=== PATIENT | male | born 1935 | race Caucasian/White ===

== ENCOUNTER 2016-11-11 12:30 | Inpatient (IN) ==
--- NOTE | 2016-11-11 13:09 | PROVIDER DOCUMENTATION ---
Addendum entered and electronically signed by Loly Sanabria Scribe 11/11/16 17:35 : Progress - XRAY 1 XRAY: Bilateral XRAY Study: Chest Impression: Abnormal XRAY Interpretation: RLL pneumonia with COPD per Dr. Matamoros Original Note: HPI-Respiratory General - General Chief Complaint: Shortness of Breath Stated Complaint: RESP DISTRESS Time Seen by Provider: 11/11/16 12:32 Source: patient Allergies/Adverse Reactions: Patient Allergies Allergy/AdvReac Type Severity Reaction Status Date / Time No Known Allergies Allergy Unverified 11/11/16 12:43 Home Medications: Albuterol Sulfate [Ventolin Hfa] 1 puff INH 3-4XDAY PRN PRN 09/09/12 Carvedilol [Coreg] 6.25 mg PO BID 09/09/12 Lisinopril 5 mg PO DAILY 09/09/12 Tamsulosin [Flomax] 0.4 mg PO QHS 09/09/12 Montelukast Sodium 10 mg PO QHS 01/05/14 SIMVAstatin [Zocor] 20 mg PO DAILY 01/05/14 Fluticasone/Salmeterol [Advair 250-50 Diskus] 1 each IH BID 05/06/14 Prednisone 10 mg PO EVERY OTHER DAY 05/06/14 Potassium Chloride E.r. [Klor-Con] 10 meq PO BID 11/11/16 - History of Present Illness-Resp Nature of Presenting Problem: Pt is 81 y/o M presents to the ED via EMS with SOB. Pt states has COPD and cardiac history. Pt states having a cough and producing yellow sputum. Pt states the SOB has worsened in the last two days. Pt denies chest pain and F. Quality of Pain: reports: tightness Severity in ED: reports: mild Onset/Duration: reports: 2 days ago Timing: reports: still present, intermittent Exposure: reports: unknown cause Cough Quality/Degree: reports: moderate, sputum (yellow) Episode Frequency: occasional episodes Current Respiratory Medication Therapy: Initiated see nurses note Modifying Factors: improves with: nothing Associated Symptoms: reports: cough, shortness of breath. denies: chest pain/ soreness, dizziness, earache, facial pain, fever/chills, flu-like symptoms, headache, heart racing, hurts to breathe, hyperventilating, lightheadedness, muscle/bodyaches, nasal congestion, nasal drainage, sinus pain, short of breath , sore throat, sweaty, wheezing Similar Symptoms Previously?: Yes Recently seen or treated by another doctor?: No Review of Systems - Adult - REVIEW OF SYSTEMS - ADULT Constitutional: denies: chills, fever Eyes: denies: decreased vision, blurred vision, double vision Ears, Nose, Mouth & Throat: denies: ear pain, nose pain, throat pain Cardiovascular: denies: chest pain, heart murmur, irregular heart rate Respiratory: reports: cough, shortness of breath. denies: wheezing Gastrointestinal: denies: abdominal pain, diarrhea, nausea, vomiting Genitourinary: denies: dysuria, hematuria Musculoskeletal: denies: bone pain, joint pain, neck pain Integumentary: denies: hives, itching Neurological: denies: dizziness/vertigo, headache/migraines Psychiatric: reports: no symptoms reported Endocrine: reports: no symptoms reported Hematologic/Lymphatic: reports: no symptoms reported Allergic/Immunologic: reports: no symptoms reported All Other Systems: Reviewed and Negative Past History - Adult - PAST MEDICAL HISTORY-ADULT Review of Records: reports: Nursing Assessment Review, Medications Reviewed, Social history reviewed & non-contributory. Major Childhood Illnesses: reports: denies history Cardiovascular: reports: HTN, [place], pacemaker Respiratory: reports: denies history Gastrointestinal: reports: denies history Obstetrical/Gynecological: reports: denies history Genitourinary: reports: denies history Musculoskeletal: reports: denies history Neurological: reports: dementia Endocrine/Immune: reports: denies history Other Conditions: reports: denies history - PRIOR SURGERIES/PROCEDURES Surgical/Procedure History: reports: CABG - IMMUNIZATION STATUS Childhood Immunizations: See Nurse Assessment Flu Vaccine: See Nurse Assessment - FAMILY HISTORY Family History: reviewed, not pertinent - SOCIAL HISTORY Smoking: quit greater than 1 year, cigarettes Provider spent 3-5 mins advising pt. on dangers of tobacco.: Discussed manners to quit use, and f/u contacts for add'l counseling. Substance Use: alcohol Alcohol Use Frequency: occasionally Number of drinks per typical drinking period:: 3-4 drinks Living Situation: family Physical Exam-General - PHYSICAL EXAM-ADULT Initial Vital Signs Reviewed: Yes - CONSTITUTIONAL General Appearance: appears well, alert, no apparent distress - EYES Eyes: PERRL/EOMI, pink conjunctivae - HEAD, EARS, NOSE, MOUTH & THROAT HENMT: normocephalic/atraumatic, moist mucous membranes, normal ENT inspection - NECK Neck: non-tender, full range of motion, normal inspection - RESPIRATORY Respiratory: chest non-tender, lungs clear, normal breath sounds, increased rate - CARDIOVASCULAR Cardiovascular: normal peripheral pulses, regular rate, rhythm, no edema - GASTROINTESTINAL (ABDOMEN) Abdominal Exam: normal bowel sounds, non tender, soft - LYMPHATIC Lymphatic: no adenopathy - MUSCULOSKELETAL Back Exam: normal inspection, no CVA tenderness, no vertebral tenderness Extremity: normal range of motion, non-tender, normal gait - SKIN Integumentary: normal color, normal turgor, warm/dry - NEUROLOGIC Neurologic: marketing intelligence manager II-XII nml as tested, grossly normal, no motor/sensory deficits - PSYCHIATRIC Psych/Mental Status: normal mood/affect, normal thought content, normal thought process, oriented x 3 Progress - PLAN OF CARE/RESULTS Progress/Plan/Lab Results: Orders Category Date Time Status Cardiac Monitoring DIRECTED Care 11/11/16 12:45 Active Saline Loc NOW Care 11/11/16 12:45 Active CHEST-2 VIEWS [RAD] Stat Exams 11/11/16 12:45 Ordered ABG [RESP] Routine Lab 11/11/16 12:46 Ordered BLOOD CULTURE [BLDCUL] Stat Lab 11/11/16 13:03 Ordered CBC WITH ELECTRONIC DIFF [HEME] Stat Lab 11/11/16 13:03 Ordered CK PROFILE [SP CHEM] Stat Lab 11/11/16 13:03 Ordered COMPREHENSIVE METABOLIC PANEL [CHEM] Stat Lab 11/11/16 13:03 Ordered D-DIMER [CHEM] Stat Lab 11/11/16 13:03 Ordered LACTATE, PLASMA [CHEM] Stat Lab 11/11/16 13:03 Ordered MAGNESIUM [CHEM] Stat Lab 11/11/16 13:03 Ordered PRO B-NATRIURETIC PEPTIDE Stat Lab 11/11/16 13:03 Ordered PROTIME WITH INR [COAG] Stat Lab 11/11/16 13:03 Ordered PTT [COAG] Stat Lab 11/11/16 13:03 Ordered SPUTUM CULTURE WITH GRAM STAIN [RM] Stat Lab 11/11/16 13:05 Ordered TROPONIN T Stat Lab 11/11/16 13:03 Ordered EKG [EKG] Stat Ther 11/11/16 12:45 Ordered Vital Signs - 24 hr 11/11/16 11/11/16 12:34 12:40 Pulse Rate 98 H 88 Respiratory 26 H 21 Rate Blood Pressure 122/76 122/76 O2 Sat by Pulse 95 95 Oximetry Laboratory Tests 11/11/16 11/11/16 12:15 13:06 WBC 7.23 RBC 3.83 L Hgb 12.0 L Hct 35.4 L MCV 92.4 MCH 31.3 H MCHC 33.9 RDW Std Deviation 12.0 Plt Count 131 MPV 9.4 Immature Gran % (Auto) 0.3 Neut % (Auto) 63.7 Lymph % (Auto) 14.9 L Sebastian % (Auto) 18.9 H Eos % (Auto) 1.9 Baso % (Auto) 0.3 Immature Gran # (Auto) 0.02 Neut # 4.60 Lymph # 1.08 L Sebastian # 1.37 H Eos # 0.14 Baso # 0.02 Specimen Type ARTERIAL Sample Site R RADIAL pH 7.38 pCO2 59 H* pO2 65 HCO3 31.1 H Base Excess 8.1 H Oxyhemoglobin 92.3 L ABG O2 Sat (Calculated) 14.4 L ABG O2 Saturation 96.9 ABG Carboxyhemoglobin 3.00 H ABG Methemoglobin 1.7 H Durga Test YES A-a O2 Difference 61.0 Total Hemoglobin 11.1 L Lactate 0.50 Liter Flow 2.0 Blood Gas Modality CANNULA FiO2 % 28.0 Laboratory Tests 11/11/16 11/11/16 11/11/16 12:15 12:15 12:15 WBC 7.23 RBC 3.83 L Hgb 12.0 L Hct 35.4 L MCV 92.4 MCH 31.3 H MCHC 33.9 RDW Std Deviation 12.0 Plt Count 131 MPV 9.4 Immature Gran % (Auto) 0.3 Neut % (Auto) 63.7 Lymph % (Auto) 14.9 L Sebastian % (Auto) 18.9 H Eos % (Auto) 1.9 Baso % (Auto) 0.3 Immature Gran # (Auto) 0.02 Neut # 4.60 Lymph # 1.08 L Sebastian # 1.37 H Eos # 0.14 Baso # 0.02 PT INR PTT (Actin FS) D-Dimer 0.44 Specimen Type Sample Site pH pCO2 pO2 HCO3 Base Excess Oxyhemoglobin ABG O2 Sat (Calculated) ABG O2 Saturation ABG Carboxyhemoglobin ABG Methemoglobin Durga Test A-a O2 Difference Total Hemoglobin Lactate Liter Flow Blood Gas Modality FiO2 % Sodium 130 L Potassium 4.7 Chloride 89 L Carbon Dioxide 28 Anion Gap 13 BUN 12 Creatinine 0.9 Estimated GFR/1.73 m2 > 60 BUN/Creatinine Ratio 13 Glucose 137 H Calculated Osmolality 263 Calcium 9.0 Magnesium 1.7 Total Bilirubin 0.56 AST 16 ALT 9 L Alkaline Phosphatase 92 Troponin T Jid-[id number] Pept Total Protein 7.3 Albumin 4.1 Globulin 3.2 Albumin/Globulin Ratio 1.3 Plasma Lactate 11/11/16 11/11/16 11/11/16 12:15 12:15 12:15 WBC RBC Hgb Hct MCV MCH MCHC RDW Std Deviation Plt Count MPV Immature Gran % (Auto) Neut % (Auto) Lymph % (Auto) Sebastian % (Auto) Eos % (Auto) Baso % (Auto) Immature Gran # (Auto) Neut # Lymph # Sebastian # Eos # Baso # PT 10.8 INR 1.02 PTT (Actin FS) 26.1 D-Dimer Specimen Type Sample Site pH pCO2 pO2 HCO3 Base Excess Oxyhemoglobin ABG O2 Sat (Calculated) ABG O2 Saturation ABG Carboxyhemoglobin ABG Methemoglobin Durga Test A-a O2 Difference Total Hemoglobin Lactate Liter Flow Blood Gas Modality FiO2 % Sodium Potassium Chloride Carbon Dioxide Anion Gap BUN Creatinine Estimated GFR/1.73 m2 BUN/Creatinine Ratio Glucose Calculated Osmolality Calcium Magnesium Total Bilirubin AST ALT Alkaline Phosphatase Troponin T < 0.010 Qjo-[id number]-Fwgfivotnkg Pept 1129 H Total Protein Albumin Globulin Albumin/Globulin Ratio Plasma Lactate 11/11/16 11/11/16 12:58 13:06 WBC RBC Hgb Hct MCV MCH MCHC RDW Std Deviation Plt Count MPV Immature Gran % (Auto) Neut % (Auto) Lymph % (Auto) Sebastian % (Auto) Eos % (Auto) Baso % (Auto) Immature Gran # (Auto) Neut # Lymph # Sebastian # Eos # Baso # PT INR PTT (Actin FS) D-Dimer Specimen Type ARTERIAL Sample Site R RADIAL pH 7.38 pCO2 59 H* pO2 65 HCO3 31.1 H Base Excess 8.1 H Oxyhemoglobin 92.3 L ABG O2 Sat (Calculated) 14.4 L ABG O2 Saturation 96.9 ABG Carboxyhemoglobin 3.00 H ABG Methemoglobin 1.7 H Durga Test YES A-a O2 Difference 61.0 Total Hemoglobin 11.1 L Lactate 0.50 Liter Flow 2.0 Blood Gas Modality CANNULA FiO2 % 28.0 Sodium Potassium Chloride Carbon Dioxide Anion Gap BUN Creatinine Estimated GFR/1.73 m2 BUN/Creatinine Ratio Glucose Calculated Osmolality Calcium Magnesium Total Bilirubin AST ALT Alkaline Phosphatase Troponin T Qot-F-Micaoechosq Pept Total Protein Albumin Globulin Albumin/Globulin Ratio Plasma Lactate 0.8 - EKG 1 Time of EKG reading by physician:: 13:27 EKG Read and Signed by:: Goldy Matamoros EKG Interpretation (*Must complete 3 of following elements*): Abnormal (T wave abnormality, consider lateral ischemia) Rate: 60 Rhythm: atrial-paced rhythm Comments: anterior infarct, age undetermined - CONSULTS/PCP/HOSPITALIST Notification #1 *Consult/PCP/Hospitalist*: Dr. Rankin Time Discussed: 14:50 (Dr. Rankin accepted admit. ) Reason/Comments: Dr. Matamoros consulted with Dr. Rankin about admit of Pt Consult Disposition: Admit Departure - Departure Time of Disposition Order: 14:49 DIAGNOSIS: COPD (chronic obstructive pulmonary disease) Qualifiers: COPD type: unspecified COPD Qualified Code(s): J44.9 - Chronic obstructive pulmonary disease, unspecified Disposition: ADMITTED INPATIENT 09 Certified Medical Emergency: Emergent Condition: Stable Additional Instructions: ED Follow Up Instructions: You have been treated by a care provider in the Emergency Department. These instructions are being provided to you so you can have an understanding of how to care for yourself upon discharge. Upon discharge from the Emergency Department, you are responsible for making arrangements for follow-up care by a physician of your choice. Take all prescribed medications as directed. Return to the Emergency Department immediately for any new or worsening symptoms. You may call the Physician Referral phone number at [phone] to obtain a list of Physicians who are taking new patients. Referrals: Keven Rankin MD [Primary Care Provider] - Attestation - Scribe Verification/Attestation Scribe:: Loly Sanabria Acting as Scribe for:: Goldy Matamoros Scribe documention review:: This chart was documented by a scribe and accurately reflects the service the provider performed and the decisions made by the provider.
[2016-11-11 13:16] LABS: ALLEN TEST YES; BE 8.1 mmoll (-3.0-3.0); BLOOD TYPE ARTERIAL; DRAW SITE R RADIAL; METHB 1.7 % (0.0-1.5); O2(CT) 14.4 mL/dL (15.0-23.0); PO2(98.6) 65 mmHg (60-100); SAMPLE BLOOD; SAO2 96.9 % (95.0-100.0); THB 11.1 g/dL (11.5-17.4); pH(98.6) 7.38 (7.35-7.45)
[2016-11-11 13:17] LABS: MANUAL DIFF NEEDED? NO
[2016-11-11 13:17] LABS: MODALITY CANNULA
[2016-11-11 13:19] LABS: PCO2(98.6) 59 mmHg (35-45)
[2016-11-11 13:21] LABS: BASO% 0.3 % (0.0-0.8); EOS# 0.14 X1000 (0.0-0.7); EOS% 1.9 % (0.0-10.0); HEMATOCRIT 35.4 % (42.0-52.0); IMM GRAN# 0.02 X1000 (0.0-0.04); IMM GRAN% 0.3 % (0.0-0.5); LYMPH# 1.08 X1000 (1.2-3.4); LYMPH% 14.9 % (20.5-51.1); MCH 31.3 PG (27-31); MCHC 33.9 g/dL (33-37); MCV 92.4 FL (81-99); MONO# 1.37 X1000 (0.11-0.59); MONO% 18.9 % (1.7-9.3); MPV 9.4 FL (7.4-10.4); NEUT% 63.7 % (42.2-75.2); PLT 131 X1000 (130-400); RBC 3.83 XMIL (4.7-6.1)
[2016-11-11 13:33] LABS: INR 1.02; PROTIME 10.8 Seconds (9.2-11.7); PTT 26.1 Seconds (22.0-36.0)
[2016-11-11 13:50] LABS: AGAP 13; ALBUMIN 4.1 g/dL (3.5-5.0); ALKALINE PHOSPHATASE 92 U/L (32-122); BUN 12 mg/dL (8-22); CHLORIDE 89 mmol/L (98-107); COSMO 263; GOT 16 U/L (10-34); GPT 9 U/L (10-44); MAGNESIUM 1.7 mg/dL (1.5-2.7); POTASSIUM 4.7 mmol/L (3.5-5.1); SODIUM 130 mmol/L (136-145); TCO2 28 mmol/L (25-35); TOTAL BILIRUBIN 0.56 mg/dL (0.20-1.00); TOTAL PROTEIN 7.3 g/dL (6.3-8.3)
[2016-11-11] MEDS ORDERED: DUONEB (A & A) INH ONE (14:14)
[2016-11-11] MEDS ORDERED: SOLU-MEDROL IV ONE (14:14)
[2016-11-11] MEDS ORDERED: MORPHINE IV PRN (14:35)
[2016-11-11] MEDS ORDERED: TYLENOL PO PRN (14:35)
[2016-11-11] MEDS ORDERED: ZOFRAN IV PRN (14:35)
[2016-11-11 14:49] LABS: CK PROFILE 92 U/L (24-204)
[2016-11-11] MEDS ORDERED: PROTONIX IV SCH (15:30)
[2016-11-11] MEDS ORDERED: ZITHROMAX PO SCH (15:30)
[2016-11-11] MEDS ORDERED: SODIUM CHLORIDE 0.9% INJ SCH (15:30)
--- NOTE | 2016-11-11 18:40 | Diag Imaging Result Document ---
PROCEDURE NAME: CHEST-2 VIEWS - 11/11/2016 TWO VIEWS OF THE CHEST: FINDINGS: There is a pacemaker on the left with sternotomy wires the heart size and pulmonary vascularity are within normal limits. There is emphysematous change some fibrosis. The atelectasis which was present previously in the left upper lobe on 02/09/2016 has apparently resolved. IMPRESSION: COPD.
[2016-11-11] MEDS: DUONEB (A & A) INH SCH ×2 (19:30→22:05)
[2016-11-11] MEDS: LOVENOX SUBQ SCH (20:20)
[2016-11-11] MEDS: SODIUM CHLORIDE 0.9% INJ SCH (20:24)
[2016-11-11] MEDS: PROTONIX IV SCH (20:24)
[2016-11-11] MEDS: ROCEPHIN 1 GM/NS 50 ML IV SCH (20:26)
[2016-11-11] MEDS: ADVAIR 250/50 DISKUS INH SCH (20:26)
[2016-11-11] MEDS: KLOR-CON PO SCH (22:07)
[2016-11-11] MEDS: ATIVAN PO PRN (22:07)
[2016-11-11] MEDS: FLOMAX PO SCH (22:07)
[2016-11-11] MEDS: SOLU-MEDROL IV SCH (22:07)
[2016-11-11] MEDS: SINGULAIR PO SCH (22:07)
[2016-11-11] MEDS: COREG PO SCH (22:08)
[2016-11-12] MEDS: DUONEB (A & A) INH SCH ×6 (03:43→23:25)
--- NOTE | 2016-11-12 03:59 | HISTORY AND PHYSICAL ---
CHIEF COMPLAINT: Shortness of breath. HISTORY OF PRESENT ILLNESS: Mr. Ardon is a 81-year-old, white gentleman with a known case of COPD, chronic respiratory failure. Not doing well the last 3 days. The patient had increasing cough, chest congestion, shortness of breath, cough with yellowish expectoration, feverish feeling, increasing shortness of breath, decreased exercise tolerance. The patient was using his home oxygen nebulizer treatment. The patient was not feeling well, getting more short of breath. Came to the emergency room. Evaluated by ER physician. Patient found to be in acute exacerbation of COPD. The patient was not responding to his home medicines and treatment, and we decided to admit the patient for further care. The patient denied any high-grade fever or chills. The patient was getting short of breath walking across the room. He denied any hemoptysis. No pleuritic-type of chest pain. The patient denied any typical chest pain, palpitations, orthopnea, or PND. Denied abdominal pain, nausea, vomiting. No diarrhea, blood or mucus in the stool. The patient does have polyuria and polydipsia; at times, urinary hesitancy. No dysuria or hematuria. No major weight loss or weight gain. No heat or cold intolerance. No focal weakness. Denied any joint swelling or redness. No focal numbness, tingling, weakness. No further history available at this time. ALLERGIES: No known drug allergies. HOME MEDICATIONS: Include nebulizer treatment, Coreg, Prinivil, Singulair. The patient is on Prilosec, potassium, Advair, Zocor, and Flomax. PAST MEDICAL HISTORY: Significant for COPD, chronic respiratory failure, hypertension, hyperlipidemia, coronary artery disease, BPH, gastritis and reflux disease, osteoarthritis. PERSONAL HISTORY: . Nonsmoker. Denied alcohol or substance abuse. REVIEW OF SYSTEMS: As per HPI. PHYSICAL EXAMINATION: GENERAL: Elderly, white gentleman in mild distress. VITAL SIGNS: On admission, blood pressure 122/76, pulse 98, respirations 26, temperature 98 degrees. SKIN: Senile turgor. No rash or petechiae. HEENT: Head atraumatic, normocephalic. [place] conjunctivae. Anicteric sclerae. Extraocular muscle movement normal. Fundus cannot be penetrated. Good oral hygiene. No tonsillopharyngeal congestion or exudate. Ears and nose benign. NECK: Supple. No JVD, thyromegaly, or lymphadenopathy. CHEST: Bibasilar crepitation, bilateral expiratory wheezing. No rales. CARDIOVASCULAR: S1 and S2 heard. No gallop or thrill. ABDOMEN: Soft. No distention. Bowel sounds present. No organomegaly or mass. EXTREMITIES: No cyanosis, clubbing. No acute DVT. Minimal swelling around ankle. TRANSMITTER SUPERVISOR: Alert, awake. Able to move all 4 limbs. MUSCULOSKELETAL: Crepitation of both the knee joints. ADMISSION LABORATORY DATA: WBC count 7.23, hemoglobin 12, hematocrit 35.4, platelet count was 131,000. PT/INR 1.02, PTT 26.1, D-dimer was 0.44. Blood gas, pH 7.38, pCO2 59, PO2 was 65. Patient does have chronic respiratory failure. This was done on 2 L via nasal cannula. Admission lab: Sodium 130, potassium 4.7, chloride was 89, BUN 12, creatinine 0.9. Alkaline phosphatase 92. ProBNP 1129. Plasma lactate was 0.8. Admission chest x-ray results reviewed which did not reveal any acute pneumonia. It did reveal COPD. CONSIDERATION: 1. Acute exacerbation of chronic obstructive pulmonary disease. 2. Hypertension. 3. Hyperlipidemia. 4. Coronary artery disease. 5. Benign prostatic hyperplasia. 6. Chronic respiratory failure. PLAN: Admit the patient. IV antibiotics. Pulmonary toilet. Bronchodilator care. GI and DVT prophylaxis. Continue home medicine. Lab data noted. Overall plan discussed with the patient and they are in agreement.
[2016-11-12] MEDS: SOLU-MEDROL IV SCH ×4 (05:44→21:42)
[2016-11-12] MEDS: ADVAIR 250/50 DISKUS INH SCH ×2 (07:54→19:44)
--- NOTE | 2016-11-12 08:40 | EKG Report ---
Test Performed on : 11/11/2016 1:27:23 PM Test Reason : Chest Pain Blood Pressure : / mmHG Vent. Rate : 060 BPM Atrial Rate : 060 BPM P-R Int : 110 ms QRS Dur : 094 ms QT Int : 404 ms P-R-T Axes : 076 078 111 degrees QTc Int : 404 ms Atrial-paced rhythm Anterior infarct (cited on or before 05-JAN-2014) T wave abnormality, consider lateral ischemia Abnormal ECG When compared with ECG of 05-FEB-2014 08:02, Questionable change in initial forces of Lateral leads Unconfirmed Result
[2016-11-12] MEDS: ZOCOR PO SCH (08:52)
[2016-11-12] MEDS: ZITHROMAX PO SCH (08:53)
[2016-11-12] MEDS: KLOR-CON PO SCH ×2 (08:53→21:42)
[2016-11-12] MEDS: PRINIVIL PO SCH (08:53)
[2016-11-12] MEDS: COREG PO SCH ×2 (08:54→21:42)
--- NOTE | 2016-11-12 12:38 | PROGRESS NOTE ---
DATE: 11/12/2016 SUBJECTIVE: Mr. Ardon is still very short of breath. He has COPD with acute exacerbation. He is getting out of breath very quickly. Overall condition is unchanged. We will continue with the current management with antibiotics. He is getting IV Rocephin. ASSESSMENT/PLAN: His PCO2 yesterday was 59, he is still very weak. -1
[2016-11-12 16:27] LABS: ALLEN TEST YES; BE 5.2 mmoll (-3.0-3.0); BLOOD TYPE ARTERIAL; DRAW SITE R RADIAL; METHB 1.9 % (0.0-1.5); O2(CT) 15.5 mL/dL (15.0-23.0); PO2(98.6) 81 mmHg (60-100); SAMPLE BLOOD; SAO2 98.3 % (95.0-100.0); THB 11.7 g/dL (11.5-17.4); pH(98.6) 7.37 (7.35-7.45)
[2016-11-12 16:30] LABS: MODALITY CANNULA; PCO2(98.6) 55 mmHg (35-45)
[2016-11-12] MEDS: PROTONIX IV SCH (21:42)
[2016-11-12] MEDS: SINGULAIR PO SCH (21:42)
[2016-11-12] MEDS: ATIVAN PO PRN (21:42)
[2016-11-12] MEDS: FLOMAX PO SCH (21:42)
[2016-11-12] MEDS: ROCEPHIN 1 GM/NS 50 ML IV SCH (21:42)
[2016-11-12] MEDS: LOVENOX SUBQ SCH (21:43)
[2016-11-13] MEDS: DUONEB (A & A) INH SCH ×6 (03:25→23:44)
[2016-11-13] MEDS: SOLU-MEDROL IV SCH ×3 (06:02→21:29)
[2016-11-13] MEDS ORDERED: LASIX IV ONE (06:48)
[2016-11-13] MEDS ORDERED: MORPHINE IV PRN (06:48)
--- NOTE | 2016-11-13 07:00 | PROGRESS NOTE ---
DATE: 11/13/2016 SUBJECTIVE: Mr. Ardon is doing fair. He still has a cough, expectoration. At times, it is hard for him to expectorate. No high-grade fever or chills. The patient does get short of breath with undue exertion. Denied any nausea or vomiting. Oral intake is fair. No dysuria or hematuria. Patient admitted with COPD exacerbation, acute on chronic respiratory failure. PHYSICAL EXAMINATION: Vital Signs: His vital signs noted. Neck: Supple. No JVD. Lungs: Bilateral good air entry present. Expiratory wheezing. CVS: S1 and S2 heard. Abdomen: Soft, globular. Bowel sounds present. LEAF SUCKER OPERATOR: Alert, awake. Able to move all 4 limbs. CONSIDERATION: 1. Chronic obstructive pulmonary disease exacerbation. 2. Chronic respiratory failure. 3. Hypertension. 4. Hyperlipidemia. PLAN: We will continue current treatment. Close observation. I am going to decrease steroid to 60 mg. Continue bronchodilator care, small dose of IV Lasix. We will add Mucomyst nebulizer treatment. Overall plan discussed with the patient and he is in agreement.
[2016-11-13] MEDS: ADVAIR 250/50 DISKUS INH SCH ×2 (07:42→19:43)
[2016-11-13] MEDS: PRINIVIL PO SCH (08:07)
[2016-11-13] MEDS: KLOR-CON PO SCH ×2 (08:07→21:29)
[2016-11-13] MEDS: COREG PO SCH ×2 (08:08→21:29)
[2016-11-13] MEDS: ZOCOR PO SCH (08:08)
[2016-11-13] MEDS: ZITHROMAX PO SCH (08:08)
[2016-11-13] MEDS: MUCOMYST 20% INH SCH ×2 (15:25→19:43)
[2016-11-13] MEDS: PROTONIX IV SCH (21:29)
[2016-11-13] MEDS: FLOMAX PO SCH (21:29)
[2016-11-13] MEDS: ROCEPHIN 1 GM/NS 50 ML IV SCH (21:29)
[2016-11-13] MEDS: SINGULAIR PO SCH (21:29)
[2016-11-13] MEDS: LOVENOX SUBQ SCH (21:30)
[2016-11-14] MEDS: DUONEB (A & A) INH SCH ×6 (03:51→23:09)
[2016-11-14 05:41] LABS: MANUAL DIFF NEEDED? NO
[2016-11-14 05:43] LABS: HEMATOCRIT 32.1 % (42.0-52.0); IMM GRAN# 0.04 X1000 (0.0-0.04); IMM GRAN% 0.7 % (0.0-0.5); LYMPH# 0.48 X1000 (1.2-3.4); LYMPH% 7.9 % (20.5-51.1); MCH 31.2 PG (27-31); MCHC 34.3 g/dL (33-37); MCV 90.9 FL (81-99); MONO# 0.51 X1000 (0.11-0.59); MONO% 8.4 % (1.7-9.3); MPV 9.5 FL (7.4-10.4); PLT 123 X1000 (130-400); RBC 3.53 XMIL (4.7-6.1)
[2016-11-14] MEDS: SOLU-MEDROL IV SCH ×3 (05:52→22:09)
[2016-11-14 06:09] LABS: AGAP 7; ALBUMIN 3.6 g/dL (3.5-5.0); ALKALINE PHOSPHATASE 67 U/L (32-122); BUN 22 mg/dL (8-22); CALCIUM 8.7 mg/dL (8.8-10.2); CHLORIDE 90 mmol/L (98-107); COSMO 269; GOT 14 U/L (10-34); GPT 9 U/L (10-44); MAGNESIUM 1.9 mg/dL (1.5-2.7); POTASSIUM 4.8 mmol/L (3.5-5.1); SODIUM 131 mmol/L (136-145); TCO2 34 mmol/L (25-35); TOTAL BILIRUBIN 0.35 mg/dL (0.20-1.00); TOTAL PROTEIN 6.3 g/dL (6.3-8.3)
[2016-11-14] MEDS ORDERED: MILK OF MAGNESIA PO ONE (06:25)
--- NOTE | 2016-11-14 07:11 | PROGRESS NOTE ---
DATE: 11/14/2016 SUBJECTIVE: Mr. Ardon is feeling some better. The patient still has cough and shortness of breath, though it is improving slowly. No nausea, vomiting. Complaining of some constipation. No typical chest pain or palpitations. No diarrhea. Patient admitted with COPD exacerbation. OBJECTIVE: Vital Signs: Vital signs reviewed. Patient is afebrile. Neck: Supple. No JVD. Lungs: Bibasilar crepitations. Occasional wheezing. CVS: S1 and S2 heard. Abdomen: Soft, globular. Bowel sounds present. Extremities: No cyanosis, clubbing. No acute DVT. HEALTHCARE MARKETER: Alert, awake. Able to move all 4 limbs. Lab Data: Done today revealed WBC count 6.05, hemoglobin 11, hematocrit 32.1, platelet count 123,000. Electrolytes: Mild hyponatremia. Blood sugar was 154. The patient's chest x-ray result is pending. I am going to treat his constipation symptomatically with milk of magnesia. His sputum is growing gram-negative rods. I am going to change his Rocephin to Zosyn. The patient received p.o. Zithromax for 4 days. I am going to stop it today. PROBLEM LIST: Includes: 1. Chronic obstructive pulmonary disease exacerbation. 2. Benign prostatic hyperplasia. 3. Hypertension. 4. Coronary artery disease. PLAN: Overall plan discussed with the patient and he is in agreement. We are going to taper his steroid. Plan is to discharge patient home soon.
--- NOTE | 2016-11-14 07:33 | Diag Imaging Result Document ---
PROCEDURE NAME: CHEST-2 VIEWS - 11/14/2016 CHEST X-RAY 2 VIEWS, 11/14/2016: COMPARISON: 11/11/2016. FINDINGS: Stable COPD. Stable CABG changes. Stable left-sided pacemaker. There is decrease in some pulmonary vascular congestion that was present previously. The lungs are now clear and the heart size is normal. IMPRESSION: Improvement from prior. No acute disease.
[2016-11-14] MEDS: ADVAIR 250/50 DISKUS INH SCH ×2 (07:50→19:26)
[2016-11-14] MEDS: MUCOMYST 20% INH SCH ×2 (07:50→19:26)
[2016-11-14] MEDS: ZOCOR PO SCH (08:32)
[2016-11-14] MEDS: COREG PO SCH ×2 (08:32→22:08)
[2016-11-14] MEDS: ZOSYN 3.375 GM/NS 50 ML IV SCH ×3 (08:32→22:14)
[2016-11-14] MEDS: PRINIVIL PO SCH (08:32)
[2016-11-14] MEDS: KLOR-CON PO SCH ×2 (08:33→22:08)
[2016-11-14] MEDS: SINGULAIR PO SCH (22:08)
[2016-11-14] MEDS: FLOMAX PO SCH (22:08)
[2016-11-14] MEDS: PROTONIX IV SCH (22:09)
[2016-11-14] MEDS: SODIUM CHLORIDE 0.9% INJ SCH (22:09)
[2016-11-14] MEDS: LOVENOX SUBQ SCH (22:10)
[2016-11-15] MEDS: DUONEB (A & A) INH SCH ×3 (03:52→10:44)
[2016-11-15] MEDS: ZOSYN 3.375 GM/NS 50 ML IV SCH ×2 (03:55→10:11)
--- NOTE | 2016-11-15 07:10 | DISCHARGE SUMMARY ---
ADMISSION DATE: 11/11/2016 DISCHARGE DATE: 11/15/2016 FINAL DISCHARGE DIAGNOSES: 1. Chronic obstructive pulmonary disease exacerbation. 2. Chronic respiratory failure. 3. Coronary artery disease. 4. Hypertension. 5. Benign prostatic hypertrophy. 6. Rhinitis. 7. Gastritis and reflux disease. 8. Hyperlipidemia. HISTORY OF PRESENT ILLNESS: Mr. Ardon is a 81-year-old white gentleman who was admitted with increasing cough, chest congestion, shortness of breath, not responding to his home medicines. Expectoration was purulent. The patient was more short of breath. Evaluated in the ER, the patient found to have leukocytosis. Evaluated by ER physician. Though normal WBC count, but clinically he had COPD exacerbation, and we decided to admit the patient for further care. HOSPITAL COURSE: The patient was treated with IV antibiotics, pulmonary toilet, IV steroid, symptomatic treatment. His clinical condition gradually improved. The patient is doing better. Shortness of breath is improving. The patient regained his baseline status, and I am planning to discharge him home today. I offered him short term rehab at [facility]. The patient declined. We are going to discharge him with home health. The patient is a nonsmoker. PHYSICAL EXAMINATION: Vital Signs: Reviewed. The patient is afebrile. Neck: Supple. No JVD. Lungs: Bilateral air entry present. Occasional wheezing. Cardiovascular: S1 and S2 heard. Abdomen: Soft, nontender. Bowel sounds present. Central Nervous System: Alert, awake, able to move all 4 limbs. LABORATORY DATA: Done yesterday, WBC count 6.05, hemoglobin 11, hematocrit 32.1, platelet count 123,000. D-dimer was 0.44. PT/INR 1.02, PTT was 26.1. Blood gas done on 11/12/2016 showed pH 7.37, pCO2 of 55, PO2 was 81, which is much improved. This was done on 3 liters via nasal cannula. Electrolytes done yesterday are acceptable. Plasma lactate was 0.8. Chest x-ray repeated yesterday did show improvement. The patient's sputum revealed Pseudomonas, Klebsiella, and Escherichia coli. All the bacteria are sensitive to Levaquin. I advised the patient to continue home oxygen nebulizer treatment, tapering dose of steroid, fall precaution. I am going to discharge him on Levaquin. DISCHARGE INSTRUCTIONS: Follow up with me in 1 week's time. In case of more distress, call us back or go to the emergency room. OVERALL DISCHARGE CONDITION: Satisfactory.
[2016-11-15 07:52] VITALS: BP 159/76
[2016-11-15] MEDS: MUCOMYST 20% INH SCH (07:59)
[2016-11-15] MEDS: ADVAIR 250/50 DISKUS INH SCH (07:59)
[2016-11-15] MEDS ORDERED: PREDNISONE PO SCH (09:00)
[2016-11-15] MEDS: KLOR-CON PO SCH (10:07)
[2016-11-15] MEDS: ZOCOR PO SCH (10:08)
[2016-11-15] MEDS: PRINIVIL PO SCH (10:08)
[2016-11-15] MEDS: COREG PO SCH (10:10)
== END 2016-11-15 16:28 | disposition home health service (06) | DRG 191 ==
LOC: EDBD → ED 12:30 → EDIPHOLD 15:00 → 4N 20:26
PROVIDERS: ADMIT Internal Medicine; ATTEND Internal Medicine
DX: J44.1 Chronic obstructive pulmonary disease with (acute) exacerbation (principal); J96.10 Chronic respiratory failure, unspecified whether with hypoxia or hypercapnia; F03.90 Unspecified dementia, unspecified severity, without behavioral disturbance, psychotic disturbance, mood disturbance, and anxiety; N40.0 Benign prostatic hyperplasia without lower urinary tract symptoms; I25.10 Atherosclerotic heart disease of native coronary artery without angina pectoris; M19.90 Unspecified osteoarthritis, unspecified site; E78.5 Hyperlipidemia, unspecified; K21.9 Gastro-esophageal reflux disease without esophagitis; I10 Essential (primary) hypertension; Z99.81 Dependence on supplemental oxygen; Z79.51 Long term (current) use of inhaled steroids; Z79.899 Other long term (current) drug therapy; Z79.52 Long term (current) use of systemic steroids; I25.2 Old myocardial infarction; Z95.0 Presence of cardiac pacemaker; Z95.1 Presence of aortocoronary bypass graft; Z87.891 Personal history of nicotine dependence; Z71.6 Tobacco abuse counseling; J31.0 Chronic rhinitis; K29.70 Gastritis, unspecified, without bleeding
CPT/HCPCS: 71020; 80053; 82550; 82805; 83605; 83735; 83880; 84484; 85025; 85379; 85610; 85730; 87040; 87070; 87077; 87186; 87205; 93005; 94640; 94761; 96372; 96374; 96375; C9113; J0696; J1650; J1940; J2270; J2405; J2543; J2930; J7512; S0164

== ENCOUNTER 2017-07-04 13:09 | Inpatient (IN) ==
[2017-07-04] MEDS ORDERED: ZOFRAN IV ONE (13:31)
[2017-07-04] MEDS ORDERED: NS 1,000 ML IV ONE (13:32)
--- NOTE | 2017-07-04 13:39 | PROVIDER DOCUMENTATION ---
HPI-Abdominal Pain/GI Problem - General Chief Complaint: Constipation Stated Complaint: Constipation/sob Time Seen by Provider: 07/04/17 13:23 Source: patient Allergies/Adverse Reactions: Patient Allergies Allergy/AdvReac Type Severity Reaction Status Date / Time No Known Allergies Allergy Unverified 07/04/17 13:52 Home Medications: Home Medication List Medication Instructions Recorded Confirmed Last Taken Type RX: Carvedilol [Coreg] 6.25 mg PO BID 09/09/12 07/04/17 07/04/17 08:00 History RX: Lisinopril 10 mg PO DAILY 09/09/12 07/04/17 07/04/17 08:00 History RX: Tamsulosin [Flomax] 0.4 mg PO QHS 09/09/12 07/04/17 07/03/17 21:00 History RX: Montelukast Sodium 10 mg PO DAILY 01/05/14 07/04/17 07/04/17 08:00 History RX: SIMVAstatin [Zocor] 20 mg PO HS 01/05/14 07/04/17 07/03/17 21:00 History RX: Fluticasone/Salmeterol [Advair 1 each IH BID 05/06/14 07/04/17 07/04/17 08: 00 History 250-50 Diskus] RX: Prednisone 5 mg PO DAILY 05/06/14 07/04/17 07/04/17 08:00 History RX: Potassium Chloride E.r. 10 meq PO BID 11/11/16 07/04/17 07/04/17 08:00 History [Klor-Con] Docusate Sodium [Colace] 100 mg PO DAILY 07/04/17 07/04/17 07/04/17 08:00 History RX: Finasteride 5 mg PO DAILY 07/04/17 07/04/17 07/04/17 08:00 History RX: Nitroglycerin 0.4 mg SL PRN PRN 07/04/17 07/04/17 Unknown History RX: Omeprazole 40 mg PO DAILY 07/04/17 07/04/17 07/04/17 08:00 History - History of Present Illness-ABD Nature of Presenting Problems: Mr. Ardon presents with a several week history of intermittent constipation. States he has received several enemas at home and has taken laxatives without relief. States he has diffuse abdominal pain. Denies blood in stool or upon wiping. No weight loss, fatigue, night sweats noted. Mild nausea without vomiting. He was last hospitalized in November for pnuemonia. States his abdomen has become more distended and feels very full. Former smoker denies ETOH abuse. Is on hospiece due to advanced COPD. His daughter states they have have attempted milk of mag several times, dulcolax, miralax, colace, enemas without relieve of distention. Abdominal Pain Onset Location: reports: generalized abdomen Pain Radiation: reports: no radiation Quality of Pain: reports: cramping, dull Severity in ED: reports: mild Onset/Duration: reports: other (over several weeks) Timing: reports: still present Activities at Onset: reports: none Exposure to sick contacts?: No Modifying Factors: improves with: nothing Associated Symptoms: reports: constipation, diarrhea, nausea, shortness of breath (intermittent). denies: dizziness, fatigue, fever/chills, genitourinary problems, sensory/motor loss, pain with inspiration, syncope, vomiting, weakness Last BM: this morning Dark Stools Present?: reports: none noticed Rectal Bleeding: reports: none Rectal Pain: reports: none Emesis Description: reports: none Bruising or Bleeding Gums?: No Similar Symptoms Previously?: No Recently seen or treated by another doctor?: No Review of Systems - Adult - REVIEW OF SYSTEMS - ADULT Constitutional: reports: no symptoms reported, see HPI. denies: chills, fever, fatique, night sweats Eyes: reports: no symptoms reported Ears, Nose, Mouth & Throat: reports: no symptoms reported Cardiovascular: reports: no symptoms reported Respiratory: reports: no symptoms reported, shortness of breath Gastrointestinal: reports: no symptoms reported, see HPI, abdominal pain, constipation, diarrhea, nausea. denies: hematemesis, difficulty swallowing, frequent heartburn, poor appetite, rectal bleeding, vomiting Genitourinary: reports: no symptoms reported Musculoskeletal: reports: no symptoms reported Integumentary: reports: no symptoms reported Neurological: reports: no symptoms reported Psychiatric: reports: no symptoms reported Endocrine: reports: no symptoms reported Hematologic/Lymphatic: reports: no symptoms reported Allergic/Immunologic: reports: no symptoms reported All Other Systems: Reviewed and Negative Past History - Adult - PAST MEDICAL HISTORY-ADULT Review of Records: reports: Old Records Reviewed, Nursing Assessment Review, Medications Reviewed Major Childhood Illnesses: reports: denies history Cardiovascular: reports: cardiac disease (Bypass), HTN, OR, pacemaker Respiratory: reports: denies history Gastrointestinal: reports: denies history Obstetrical/Gynecological: reports: denies history Genitourinary: reports: denies history Musculoskeletal: reports: denies history Neurological: reports: dementia Endocrine/Immune: reports: denies history Other Conditions: reports: denies history - PRIOR SURGERIES/PROCEDURES Surgical/Procedure History: reports: CABG - IMMUNIZATION STATUS Childhood Immunizations: See Nurse Assessment Flu Vaccine: See Nurse Assessment - FAMILY HISTORY Family History: reviewed, not pertinent Physical Exam-General - PHYSICAL EXAM-ADULT Initial Vital Signs Reviewed: Yes - CONSTITUTIONAL General Appearance: appears well, alert - EYES Eyes: PERRL/EOMI, pink conjunctivae - HEAD, EARS, NOSE, MOUTH & THROAT HENMT: normocephalic/atraumatic - NECK Neck: non-tender, full range of motion - RESPIRATORY Respiratory: chest non-tender, lungs clear - CARDIOVASCULAR Cardiovascular: normal peripheral pulses, regular rate, rhythm, no edema, no JVD - GASTROINTESTINAL (ABDOMEN) Abdominal Exam: abnormal bowel sounds (decreased bowel sounds), distended, tenderness (diffuse and throughout). negative: guarding, rebound, hepatomegaly , spleenomegaly - MUSCULOSKELETAL Back Exam: no CVA tenderness Extremity: normal range of motion - SKIN Integumentary: normal color - PSYCHIATRIC Psych/Mental Status: normal mood/affect, normal thought content, normal thought process Progress - PLAN OF CARE/RESULTS Progress/Plan/Lab Results: Vital Signs - 8 hr 07/04/17 13:17 Temperature 98.5 F Pulse Rate 72 Respiratory Rate 20 Blood Pressure 146/55 O2 Sat by Pulse Oximetry 100 Orders Category Date Time Status Saline Loc DIRECTED Care 07/04/17 13:30 Active NPO Diet 07/04/17 13:30 Active ABDOMEN FLAT/UPRIGHT [RAD] Stat Exams 07/04/17 13:29 Ordered AMYLASE [CHEM] Stat Lab 07/04/17 13:30 Uncollected CBC WITH ELECTRONIC DIFF [HEME] Stat Lab 07/04/17 13:30 Uncollected COMPREHENSIVE METABOLIC PANEL [CHEM] Stat Lab 07/04/17 13:30 Uncollected LIPASE [CHEM] Stat Lab 07/04/17 13:30 Uncollected URINALYSIS W/POSS RFLX CULT-1 [URINALYSIS] Stat Lab 07/04/17 13:30 Uncollected 0.9% Sodium Chloride Inj [Ns] 1,000 ml Med 07/04/17 13:32 Active IV 999 mls/hr Ondansetron [Zofran] Med 07/04/17 13:31 Discontinued 4 mg IV NOW ONE Result Diagrams: 07/04/17 13:41 07/04/17 13:41 - REASSESSMENT Reassessment #1 Time Reassessed: 13:35 (Patient appears in mild discomfort. Abd protocol order. zofran and 1L NS awaiting KUB.) Reassessment #2 Time Reassessed: 15:56 (discussed CT results with patient and family. Status unchanged continues to have abd pain not passing gas.) Status: unchanged Reassessment #3 Time Reassessed: 16:25 (Discussed with family that I spoke with Dr. Rankin - family is in agreeance to admit. -) Status: unchanged - XRAY 1 XRAY: Bilateral XRAY Study: Abdomen Impression: Abnormal, Need Further Study XRAY Interpretation: Colonic distention vs impaction - CT/MRI 1 CT Study: Abdomen, Pelvis Impression: Abnormal, Discussed w/Radiology, See EMR Report CT Results: Colonic distention/renal cysts - CONSULTS/PCP/HOSPITALIST Notification #1 *Consult/PCP/Hospitalist*: Dr. Loya (radiology) Time Discussed: 16:01 Reason/Comments: second look at CT--cannot rule out ileus but no obvious obstruction noted. #2 Consult: Dr. Rankin will admit/consult [facility] Time Discussed: 16:34 Reason/Comments: Patient will Consult Disposition: Admit Departure - Departure Date of Disposition Decision: 07/04/17 Time of Disposition Decision: 17:01 DIAGNOSIS: Abdominal pain Disposition: ADMITTED INPATIENT 09 Certified Medical Emergency: Emergent Condition: Fair Referrals and Follow-Ups: Morales Sheppard MD [Primary Care Provider] - - Critical Care Note This patient required my direct & personal management of CC.: Yes Total Time (mins): 37 Critical Care Statement: This patient required my direct personal management to treat or rule out processes, the absence of which, could potentiallly result in sudden, clinically significant life or limb threatening deterioration. Attestation - Physician/ ISHMAEL Attestation Patient care was provided by Advanced Practice Provider:: No The physician spent face to face time with patient:: Yes Advanced Practice Provider documentation review:: Supervising physician onsite and consulted in the evaluation and care of this patient. The physician did have a face to face encounter with the patient.
[2017-07-04 13:55] LABS: MANUAL DIFF NEEDED? NO
[2017-07-04 13:59] LABS: BASO% 0.2 % (0.0-0.8); EOS# 0.11 X1000 (0.0-0.7); EOS% 1.7 % (0.0-10.0); HEMATOCRIT 35.7 % (42.0-52.0); HEMOGLOBIN 12.4 g/dL (14.0-18.0); IMM GRAN# 0.03 X1000 (0.0-0.04); IMM GRAN% 0.5 % (0.0-0.5); LYMPH# 0.89 X1000 (1.2-3.4); LYMPH% 13.9 % (20.5-51.1); MCH 31.7 PG (27-31); MCHC 34.7 g/dL (33-37); MCV 91.3 FL (81-99); MONO# 0.89 X1000 (0.11-0.59); MONO% 13.9 % (1.7-9.3); MPV 9.1 FL (7.4-10.4); NEUT% 69.8 % (42.2-75.2); PLT 146 X1000 (130-400); RBC 3.91 XMIL (4.7-6.1)
--- NOTE | 2017-07-04 14:07 | Diag Imaging Result Doc PS360 ---
EXAM: ABDOMEN FLAT/UPRIGHT HISTORY: abd distention/pain/constipation TECHNIQUE: Portable flat and upright abdomen COMMENT: The pelvis is not entirely included on either view. There is gas throughout the colon. The small bowel and stomach are not apparently distended. There is no evidence of organomegaly or mass. IMPRESSION: Possibility of fecal impaction in the rectum cannot be excluded as this was not included on the study. Otherwise, the differential would include distal colonic obstruction or colonic ileus. Electronically signed by Naresh Lay 07/04/2017 2:05 PM
[2017-07-04 14:22] LABS: AGAP 13; ALBUMIN 4.3 g/dL (3.5-5.0); ALKALINE PHOSPHATASE 86 U/L (32-122); AMYLASE 62 U/L (20-200); BUN 11 mg/dL (8-22); CALCIUM 9.4 mg/dL (8.8-10.2); CHLORIDE 88 mmol/L (98-107); COSMO 262; GOT 16 U/L (10-34); GPT 16 U/L (10-44); LIPASE 26 U/L (13-60); POTASSIUM 5.1 mmol/L (3.5-5.1); SODIUM 130 mmol/L (136-145); TCO2 29 mmol/L (25-35); TOTAL BILIRUBIN 0.64 mg/dL (0.20-1.00); TOTAL PROTEIN 7.5 g/dL (6.3-8.3)
[2017-07-04 15:10] LABS: URINE CULTURE NEEDED? NO; URINE MICRO REVIEW NEEDED? NO; URINE SOURCE CLEAN CATCH
[2017-07-04 15:18] LABS: BILIRUBIN URINE NEGATIVE (NEGATIVE); BLOOD URINE NEGATIVE (NEGATIVE); COLOR STRAW; GLUCOSE URINE NEGATIVE (NEGATIVE); LEUKOCYTES URINE NEGATIVE (NEGATIVE); NITRITE URINE NEGATIVE (NEGATIVE); PH URINE 7.5; PROTEIN URINE NEGATIVE (NEGATIVE); SP GRAVITY URINE 1.031; TURBIDITY URINE CLEAR (CLEAR); UR EPITHELIAL CELLS <10 /HPF (<10); URINE BACTERIA NEGATIVE /HPF; URINE RBC <10 /HPF (<10); URINE WBC <10 /HPF (<10); UROBILINOGEN URINE NORMAL (NORMAL)
--- NOTE | 2017-07-04 15:28 | Diag Imaging Result Doc PS360 ---
EXAM: CT ABD/PELVIS W/ IV CONT ONLY INDICATION: abd pain/distention/possible obstruction TECHNIQUE: Dose reduction protocol was used. COMPARISON: No prior abdominal CT is available for comparison. FINDINGS: There is extensive pulmonary emphysema at the lung bases. There is focal scarring at the left lung base that is stable as compared to a prior CT chest from 2014. The liver, gallbladder, spleen, and pancreas are unremarkable. There is a 1.8 cm left adrenal nodule that is stable as compared to the CT from 2014 and statistically most likely represents a small adenoma. The adrenal glands are unremarkable, otherwise. There are bilateral cystic appearing lesions with no enhancement involving both kidneys with the largest at the anterior aspect of the left kidney measuring up to 6 cm. There is a tiny hiatal hernia. The urinary bladder is unremarkable. There is extensive sigmoid diverticulosis but there is no evidence of diverticulitis. The appendix is normal. There is no evidence of bowel obstruction. There is mild gaseous distention of the colon. The remainder of the GI tract is unremarkable. No focal inflammatory changes, free abdominal gas, or free fluid is identified. There is extensive aortoiliac atherosclerotic disease with intermittent narrowing and there is subaneurysmal ectasia of the infrarenal aorta measuring up to 2.8 cm in diameter. IMPRESSION: 1.Mild colonic distention but no evidence of obstruction. 2.Uncomplicated sigmoid diverticulosis coli. 3.Other incidental/nonacute findings detailed above but no definite acute pathology. Electronically signed by Eric Loya 07/04/2017 3:26 PM
[2017-07-04] MEDS ORDERED: NS 1,000 ML IV SCH (16:45)
[2017-07-04] MEDS ORDERED: SODIUM CHLORIDE 0.9% INJ ONE (16:57)
[2017-07-04] MEDS ORDERED: PROTONIX IV ONE (17:00)
[2017-07-04] MEDS ORDERED: SODIUM CHLORIDE 0.9% INJ SCH (17:14)
[2017-07-04] MEDS ORDERED: PROTONIX IV SCH (17:15)
[2017-07-04] MEDS ORDERED: GOLYTELY PO ONE (18:00)
[2017-07-04] MEDS ORDERED: DUONEB (A & A) INH SCH (19:30)
--- NOTE | 2017-07-04 20:51 | HISTORY AND PHYSICAL ---
CHIEF COMPLAINT: Constipation. Abdominal distention. HISTORY OF PRESENT ILLNESS: Mr. Ardon is a 81-year-old white gentleman, known case of advanced COPD, chronic respiratory failure, not doing well for the last 7 days, complaining of significant constipation, vague abdominal pain, abdominal distention. The patient tried multiple donl-qma-gipzaxu medications, laxatives, enema without significant relief. The patient was on hospice for his end-stage COPD and chronic respiratory failure. The patient was taking some pain medication. The patient did not have good results secondary to his laxative. The patient had abdominal distention, mild crampy abdominal pain, mild nausea, but no vomiting. He denied any high-grade fever. The patient did have chills. He was getting short of breath with minimal exertion. The patient does have chronic cough with scanty sputum production, more so in the morning. The patient is on home oxygen and nebulizer treatment, which he claims compliance. No symptoms suggestive of COPD exacerbation. The patient is feeling weak, tired and no energy. The patient was brought to the emergency room, evaluated by ER physician. The patient had significant abdominal distention. They did workup in the ER, blood work and urinalysis was benign. CT scan of the abdomen and pelvis results reviewed. Clinically, patient was sicker than the laboratory data. As patient was not responding to outpatient treatment of his constipation, his hospice was revoked and patient was admitted for further care. The patient does have a history of urinary obstruction due to enlarged prostate. The patient is on Flomax and Proscar, tolerating medication well. No dysuria or hematuria. The patient does have polyuria, polydipsia. The patient started having loose bowel movements today. When he came to the emergency room, no blood or mucus in the stool. Mild abdominal pain. No typical chest pain, palpitation. Patient does have some vague back pain. Unquantified weight loss. No heat or cold intolerance. No runny nose, stuffy nose, sinus drainage. No further history available at this time. ALLERGIES: No known drug allergy. HOME MEDICATIONS: Proscar, Flomax, Zestril, Coreg, Prilosec, bronchodilator treatment, Singulair, Zocor, Advair. PERSONAL HISTORY: . Nonsmoker. Denied alcohol or substance abuse. Fairly independent in activities of daily living. REVIEW OF SYSTEMS: As per HPI. FAMILY HISTORY: Noncontributory. PHYSICAL EXAMINATION: GENERAL: Elderly, white gentleman in mild distress. VITAL SIGNS: Blood pressure 146/55, pulse 72, respirations 20, temperature 98.5 degrees. SKIN: Normal turgor. No rash or petechiae. HEENT: Head atraumatic, normocephalic. Runnells conjunctivae. Anicteric sclerae. Extraocular muscle movement normal. Fundus cannot be penetrated. Good oral hygiene. No tonsillopharyngeal congestion or exudate. Ears and nose benign. NECK: Supple. No JVD, thyromegaly or lymphadenopathy. CHEST: Bibasilar crepitation. Occasional wheezing. No movement of accessory muscle of respiration at rest. CARDIOVASCULAR: S1 and S2 heard, 1-2/6 systolic murmur at the apex. No gallop or thrill. ABDOMEN: Soft, globular. Bowel sounds present. Patient does have mild distention, vague tenderness all over. No guarding or rigidity. RECTAL: Exam deferred. EXTREMITIES: No cyanosis, clubbing. No acute DVT. LAN/WAN ENGINEER: Alert, awake, able to move all 4 limbs. CONSIDERATION: Abdominal distention and constipation. Abdominal x-ray did reveal possibility of fecal impaction in the rectum cannot be excluded. Differential includes colonic obstruction or colonic ileus. A CT scan of the abdomen and pelvis did reveal colonic distention, but no obstruction, uncomplicated sigmoid diverticulosis, nonacute finding adrenal adenoma. His other problem includes chronic obstructive pulmonary disease and chronic respiratory failure, hypertension, hyperlipidemia, coronary artery disease, gastritis and reflux disease. PLAN: Admit the patient. IV hydration. Close observation. I will give him steroids to prevent stress-induced adrenal insufficiency, gastrointestinal prophylaxis, Gastroenterology consultation. Monitor patient closely. Overall plan discussed with the patient and he is in agreement. His admission lab data noted. CBC fairly benign. Hemoglobin 12.4, hematocrit 35.7, WBC count 6.4, platelet count 146,000. Electrolytes, mild hyponatremia. Otherwise benign. Urinalysis was negative. Overall plan discussed with the patient and he is in agreement. cc: Keven Rankin MD
[2017-07-04] MEDS ORDERED: NITROGLYCERIN SL PRN (21:04)
[2017-07-04] MEDS: FLOMAX PO SCH (22:21)
[2017-07-04] MEDS: ZOCOR PO SCH (22:22)
[2017-07-04] MEDS: SOLU-MEDROL IV SCH (22:22)
[2017-07-04] MEDS: KLOR-CON PO SCH (22:22)
[2017-07-04] MEDS: COREG PO SCH (22:22)
[2017-07-05] MEDS: SOLU-MEDROL IV SCH ×3 (04:08→21:19)
[2017-07-05 05:59] LABS: AGAP 14; ALBUMIN 3.9 g/dL (3.5-5.0); ALKALINE PHOSPHATASE 71 U/L (32-122); BUN 11 mg/dL (8-22); CALCIUM 8.6 mg/dL (8.8-10.2); CHLORIDE 92 mmol/L (98-107); COSMO 274; GOT 16 U/L (10-34); GPT 15 U/L (10-44); MAGNESIUM 1.7 mg/dL (1.5-2.7); POTASSIUM 4.9 mmol/L (3.5-5.1); SODIUM 136 mmol/L (136-145); TCO2 30 mmol/L (25-35); TOTAL BILIRUBIN 0.63 mg/dL (0.20-1.00); TOTAL PROTEIN 6.6 g/dL (6.3-8.3)
[2017-07-05 06:01] LABS: EOS# 0.02 X1000 (0.0-0.7); EOS% 0.4 % (0.0-10.0); HEMATOCRIT 32.4 % (42.0-52.0); IMM GRAN# 0.03 X1000 (0.0-0.04); IMM GRAN% 0.7 % (0.0-0.5); LYMPH# 0.47 X1000 (1.2-3.4); LYMPH% 10.4 % (20.5-51.1); MANUAL DIFF NEEDED? YES; MCH 31.5 PG (27-31); MCV 92.8 FL (81-99); MONO# 0.13 X1000 (0.11-0.59); MONO% 2.9 % (1.7-9.3); MPV 9.1 FL (7.4-10.4); NEUT% 85.6 % (42.2-75.2); PLT 130 X1000 (130-400); RBC 3.49 XMIL (4.7-6.1)
[2017-07-05 06:27] LABS: BANDS 2 % (0-1); LYMPHS 12 % (21-51); MONO 2 % (1-9)
--- NOTE | 2017-07-05 07:43 | PROGRESS NOTE ---
DATE: 07/05/2017 SUBJECTIVE: Mr. Ardon was admitted with abdominal distention and constipation. The patient is doing better. He did have some bowel movement. The patient drank GoLYTELY recommended by rubber cutter. The patient is scheduled to have sigmoidoscopy and/or colonoscopy today. The patient does feel hungry which is a good sign. The patient still has abdominal distention. No nausea or vomiting. No typical chest pain or palpitations. No high-grade fever or chills. No typical chest pain or palpitations. Known case of advanced COPD. OBJECTIVE: Vital signs: Noted. Neck: Supple. No JVD. Lungs: Bilateral good air entry present, occasional wheezing. Cardiovascular: S1 and S2 heard. Abdomen: Soft, globular, mild distention, vague tenderness. No guarding or rigidity. Bowel sounds hypoactive. Extremities: No cyanosis or clubbing. No acute DVT. Central nervous system: Alert, awake, able to move all four limbs. PROBLEMS: 1. Abdominal pain, constipation. Patient scheduled to have endoscopy by rubber cutter today. Considering his age, our differential includes rule out any obstructive lesion of the colon. Considering chronic debilitating condition and possible pain medication use, possibility of paralytic ileus cannot be ruled out. 2. COPD and chronic respiratory failure. 3. Hypertension. 4. Hyperlipidemia. PLAN: I started him on IV steroids. Continue rest of the medication. Overall plan discussed with the patient and family and they are in agreement. cc: Keven Rankin MD
--- NOTE | 2017-07-05 08:30 | Diag Imaging Result Doc PS360 ---
EXAM: KUB ABDOMEN HISTORY: Abdominal pain TECHNIQUE: Supine COMPARISON: 07/04/2017 FINDINGS: Contrast fills the urinary bladder. No bowel obstruction. No organomegaly. No abnormal calcifications. Mild scoliosis with mild degenerative changes. IMPRESSION: Negative exam. Electronically signed by Fuentes Kaur 07/05/2017 8:28 AM
[2017-07-05] MEDS: ADVAIR 250/50 DISKUS INH SCH ×2 (09:38→22:10)
[2017-07-05] MEDS ORDERED: SODIUM CHLORIDE 0.9% 20 ML ONE (09:51)
[2017-07-05] MEDS ORDERED: XYLOCAINE-MPF 2% ONE (09:51)
[2017-07-05] MEDS ORDERED: ROBINUL ONE (09:51)
[2017-07-05] MEDS ORDERED: ZOFRAN ONE (09:51)
[2017-07-05] MEDS ORDERED: FENTANYL ONE (09:52)
[2017-07-05] MEDS ORDERED: DIPRIVAN 1% ONE (09:52)
[2017-07-05] MEDS: PATIENT'S OWN MED PO SCH (10:07)
[2017-07-05] MEDS: PRINIVIL PO SCH (10:07)
[2017-07-05] MEDS: COREG PO SCH ×2 (10:07→21:18)
[2017-07-05] MEDS: KLOR-CON PO SCH ×2 (10:07→21:18)
[2017-07-05] MEDS: SINGULAIR PO SCH (10:08)
[2017-07-05] MEDS: PROSCAR PO SCH (10:08)
--- NOTE | 2017-07-05 14:25 | OPERATIVE NOTE ---
PROCEDURE DATE : 07/05/17 PROCEDURE PERFORMED: Colonoscopy. PREOPERATIVE DIAGNOSIS: Rule out colon obstruction. POSTOPERATIVE DIAGNOSIS: Diverticulosis. DESCRIPTION OF PROCEDURE: After informed consent and adequate intravenous sedation, the scope was introduced to the rectum and advanced all the way to the cecum. The entire colon was carefully examined. There was diverticulosis present. There was some erythema in the rectosigmoid. This is probably where the patient had earlier impaction but no ulcers per se and no narrowing. The scope was withdrawn. The patient tolerated the procedure well without any immediate complications. cc: MD Keven Abdalla MD MTDD
[2017-07-05] MEDS ORDERED: PROTONIX IV SCH (17:00)
[2017-07-05] MEDS: FLOMAX PO SCH (21:18)
[2017-07-05] MEDS: ZOCOR PO SCH (21:18)
[2017-07-06] MEDS: ADVAIR 250/50 DISKUS INH SCH (08:26)
[2017-07-06] MEDS ORDERED: PREDNISONE PO SCH (09:00)
[2017-07-06] MEDS: COREG PO SCH (10:09)
[2017-07-06] MEDS: PRINIVIL PO SCH (10:09)
[2017-07-06] MEDS: KLOR-CON PO SCH (10:09)
[2017-07-06] MEDS: PROSCAR PO SCH (10:09)
[2017-07-06] MEDS: PATIENT'S OWN MED PO SCH (10:10)
[2017-07-06] MEDS: SINGULAIR PO SCH (10:10)
[2017-07-06 12:12] VITALS: BP 124/63
--- NOTE | 2017-07-06 14:15 | DISCHARGE SUMMARY ---
ADMISSION DATE: 07/04/2017 DISCHARGE DATE: 07/06/2017 FINAL DISCHARGE DIAGNOSES: 1. Abdominal pain. 2. Possible colonic obstruction. 3. Paralytic ileus. 4. Chronic obstructive pulmonary disease. 5. Benign prostatic hypertrophy. 6. Hypertension. 7. Coronary artery disease. HISTORY OF PRESENT ILLNESS: Mr. Ardon is a 81-year-old white gentleman complaining of abdominal pain and distention, not having bowel movement for many days. The patient was trying multiple medications without significant relief. The patient came to the emergency room. The patient also had some nausea and abdominal distention, and evaluated by ER physician. Workup in the emergency room, including abdominal x-ray and CT scan, did reveal mild colonic distention but no evidence of obstruction, uncomplicated sigmoid diverticulosis, some scarring in the chest, left adrenal nodule or adenoma, hiatal hernia, cyst on the kidney, sigmoid diverticulosis, sub aneurysmal ectasia of infrarenal aorta. Abdominal x-ray was negative. We did GI consult. The patient received GoLYTELY prep. He underwent colonoscopy, which did reveal diverticulosis, no obstructive lesion. The patient is doing better. He tolerated food well yesterday. The patient is very eager to go home today. The patient does have advanced COPD. He does get short of breath with undue exertion. No nausea or vomiting. OBJECTIVE: Vital Signs: Vital signs noted. Lungs: Bilateral good air entry present, few basal crepitations. CVS: S1 and S2 heard. Abdomen: Soft, globular, distention is less. Bowel sounds present. PIANO TECHNICIAN: Alert, awake, able to move all 4 limbs. No acute DVT. LAB DATA: Revealed last hemoglobin done yesterday 11, hematocrit 32.4, WBC count 4.53, platelet count 130,000. Electrolytes were fairly benign. LFT was negative. TSH 0.82. Urinalysis was benign. CT scan as noted. ASSESSMENT: Overall, patient is doing better. The patient is Do Not Resuscitate. He wants to go back on hospice and comfort care. The patient claims he will feel much better at home on his own bed. I am going to discharge him home. Advised him to take MiraLAX, Colace, p.r.n. milk of magnesia, prednisone in tapering dose. Patient will be followed by hospice care consultant. Overall discharge condition satisfactory. Continue home oxygen and nebulizer treatment. In case of more distress, call us back or go to the emergency room. cc: Keven Rankin MD
== END 2017-07-06 12:20 | disposition home or self-care (01) ==
LOC: ED 13:09 → 4N 20:25
PROVIDERS: ADMIT Internal Medicine; ATTEND Internal Medicine